=== PATIENT | male | born 1965 | race African-American/Black ===

== ENCOUNTER 2018-08-08 05:22 | Emergency (ER) | payer OTHER ==
[2018-08-08 05:30] VITALS: BP 173/93; PULSE 69; RESP 18; TEMP 98.7
[2018-08-08] MEDS ORDERED: LIDOCAINE 1% INJ 10MG/ML (20 ML MDV) SQ ONE (05:40)
[2018-08-08] MEDS ORDERED: TETANUS-DIPHTHERIA TOX (PF) 0.5 ML VIAL IM ONE (05:48)
--- NOTE | 2018-08-08 06:10 | XR ---
EXAM: XR Right Finger(s), 2 or More Views. CLINICAL HISTORY: Reason: Pain TECHNIQUE: Frontal, lateral and oblique views of finger(s) of the right hand. COMPARISON: No relevant prior studies available. FINDINGS: Bones: Unremarkable. No acute fracture. Joints: No dislocation. Mild degenerative changes of the first interphalangeal joint. Soft tissues: Curvilinear metallic foreign body consistent with a fishhook seen within the palmar aspect of the right thumb. IMPRESSION: [place] seen within the palmar soft tissue of the right thumb. No underlying osseous abnormality.
[2018-08-08] MEDS ORDERED: CEPHALEXIN 500MG STARTER PACK 4 CAP BTL PO STA (06:28)
--- NOTE | 2018-08-08 06:33 | ED ---
Skin/Abscess/FB HPI - General Chief complaint: Skin/Abscess/Foreign Body Stated complaint: Rt thumb injury Time Seen by Provider: 08/08/18 05:40 Source: patient Mode of arrival: ambulatory Limitations: no limitations - History of Present Illness Initial comments: Sameer is a pleasant 53-year-old woman who presents the emergency department today for evaluation of a fishhook stuck in his right thumb. Patient reports that he was out fishing [place] this morning, he reports that he caught one reached out to grab it it flopped off the hook and the hook slipped into his right thumb. Patient does not believe that his tetanus is up-to-date. - Related Data Previous Rx's Medication Instructions Recorded Cephalexin [Keflex] 500 mg PO Q12HR #14 cap 08/08/18 Allergies Allergy/AdvReac Type Severity Reaction Status Date / Time No Known Allergies Allergy Verified 08/08/18 05:30 Review of Systems ROS Statement: Those systems with pertinent positive or pertinent negative responses have been documented in the HPI. ROS Other: All systems not noted in ROS Statement are negative. Past Medical History Past Medical History: No Reported History History of Any Multi-Drug Resistant Organisms: None Reported Past Surgical History: Hernia Repair Past Psychological History: No Psychological Hx Reported Smoking Status: Never smoker Past Alcohol Use History: Rare Past Drug Use History: None Reported General Exam - General Exam Comments Initial Comments: Physical Exam GENERAL: Patient is well-developed and well-nourished Patient is nontoxic and well-hydrated and is in no distress. HENT: Normocephalic, Atraumatic. EYES: PERRL, EOMI PULMONARY: Unlabored respirations CARDIOVASCULAR: RRR ABDOMEN: Non-distended SKIN: Single barbed fish hook in right thumb : Deferred NEUROLOGIC: Patient is alert and oriented x3. Moving all extremities spontaneously Normal gait MUSCULOSKELETAL: No obvious injury PSYCHIATRIC: Normal psychiatric evaluation Limitations: no limitations Course Vital Signs 08/08/18 05:28 Temperature 98.7 F Pulse Rate 69 Respiratory 18 Rate Blood Pressure 173/93 O2 Sat by Pulse 99 Oximetry Procedures - Nerve Block Consent Obtained: verbal consent Local Anesthetic Used: Lidocaine 1% Amount of anesthesia used: 2 Side: right Nerve Blocks: digital Procedure Successful: Yes Complications: none Patient Tolerated Procedure: well Medical Decision Making - Medical Decision Making Patient was seen and evaluated history was obtained from the patient and x-ray was obtained which reveals a fishhook in the soft tissue of the right thumb Thumb was anesthetized with a digital block the hook was advanced through the skin, the jeevan was cut off and the hook was withdrawn from the skin. Patient tolerated this well. He will be discharged home on prophylactic Keflex. Return parameters discussed all questions pertaining care were answered patient discharged home in stable condition. Disposition Clinical Impression: Fish hook injury of finger of right hand Disposition: HOME SELF-CARE Condition: Stable Instructions (If sedation given, give patient instructions): Soft Tissue Foreign Body (ED), Puncture Wound (DC) Prescriptions: Cephalexin [Keflex] 500 mg PO Q12HR #14 cap Is patient prescribed a controlled substance at d/c from ED?: No Referrals: Nonstaff,Physician [Primary Care Provider] - 1-2 days
== END 2018-08-08 06:42 | disposition home or self-care (01) ==
LOC: EC 05:22
DX: S60.351A Superficial foreign body of right thumb, initial encounter (principal); Z23 Encounter for immunization; W45.8XXA Other foreign body or object entering through skin, initial encounter; Y93.89 Activity, other specified
CPT/HCPCS: 99283; 90471; 64450; 73140; 90714; J2001